=== PATIENT | male | born 1950 | race Caucasian/White ===

== ENCOUNTER → 2021-07-04 | Outpatient (REF) | payer MEDICARE, OTHER ==
[~2021-07-04] MED LIST: ALLO300T2 PO; AMLO5TAB2 PO; ATEN25TA PO; ATOR40TA PO; LANTINJ SC; METF850T PO; MULTTAB4 PO; NIASPAN PO; PRIL40CA PO; TRIC145T19 PO
== END ==
LOC: M LAB REF 12:58
PROVIDERS: ATTEND Internal Medicine
DX: N41.9 Inflammatory disease of prostate, unspecified (principal)